=== PATIENT | male | born 1965 | race Hispanic/Latino ===

== ENCOUNTER 2023-04-22 12:09 | Inpatient (IN) | payer BC, OTHER, SELFPAY ==
[~2023-04-22 12:09] MED LIST: Iopamidol 300 61% 100 ML VIAL FS ONE
[2023-04-22] MEDS ORDERED: Ketorolac Tromethamine 30 MG (1 mL) VIAL ONE (13:01)
[2023-04-22 13:08] LABS: Bilirubin Neg (Negative); Blood, Urine Negative (Negative); Clarity Clear (Clear); Glucose, Urine (Dipstick) Normal (Negative); Ketone, Urine Negative (Negative); Leukocyte Negative (Negative); Nitrite Negative (Negative); Protein, Urine (Dipstick) 15 mg/dl (Neg-Trace); Specific Gravity, Urine 1.015 (1.005-1.030); Urobilinogen Normal mg/dL (Less than 2); pH, Urine 6.5 (5.0-9.0)
[2023-04-22 13:30] LABS: #Basophils 0.1 10x3/uL (0.0-0.2); #Eosinphils 0.1 10x3/uL (0.0-0.5); #Neutrophils 18.9 10x3/uL (1.5-8.4); %Basophils 0.3 % (0.0-2.0); %Eosinophils 0.4 % (0.0-6.0); %Lymphocytes 9.4 % (18.0-47.0); %Monocytes 4.3 % (0.0-10.0); %Neutrophils 85.1 % (40.0-75.0); Hematocrit 46.2 % (38.8-50.0); Hemoglobin 15.4 g/dL (13.5-17.5); Mean Corpuscular HGB CONC 33.3 g/dL (32.0-36.0); Mean Corpuscular Hemoglobin 29.8 pg (27.0-33.0); Mean Corpuscular Volume 89.5 fl (81.2-95.1); Mean Platelet Volume 10.5 fl (7.4-10.4); Platelet Count 411 10x3/uL (150-450); RBC Distribution Width 13.8 % (11.5-14.5); Red Blood Cell (RBC) Count 5.16 10x6/uL (4.32-5.72); White Blood Cell (WBC) Count 22.2 10x3/uL (3.5-10.5)
[2023-04-22 13:40] LABS: ALT (SGPT) 20 U/L (8-55); AST (SGOT) 26 U/L (5-34); Alkaline Phosphatase 70 U/L (40-110); Anion Gap 12 mmol/L (10-20); BUN (Urea Nitrogen) 22 mg/dL (8.4-25.7); Bilirubin, Total 0.8 mg/dL (0.2-1.2); Calc. Creatinine Clearance 0 mL/min (70-130); Calcium 9.2 mg/dL (7.8-10.44); Carbon Dioxide 22 mmol/L (22-29); Chloride 108 mmol/L (98-107); Estimated GFR 81; Glucose 116 mg/dL (70-105); Lipase 25 U/L (8-78); Potassium 4.3 mmol/L (3.5-5.1); Sodium 138 mmol/L (136-145)
[2023-04-22 13:46] LABS: Bacteria/HPF None Seen HPF (None Seen); CAUTI Indications for Culture Dysuria,urgency,freq; RBC/HPF 0-3 HPF (0-3); Squamous Epithelial 0-3 HPF (0-3); WBC/HPF None Seen HPF (0-3)
[2023-04-22 13:48] LABS: Urine Culture Reflex No No
[2023-04-22] MEDS ORDERED: Piperacillin/Tazobactam 4.5 GM VIAL ONE (14:08)
[2023-04-22] MEDS ORDERED: Vancomycin 1.5 GRAM/300 ML BAG 1.5 GM in Premix 1 BAG IVPB SCH (14:15)
[2023-04-22] MEDS ORDERED: Bupivacaine PF 0.5% 30 ML VIAL ONE (15:19)
[2023-04-22] MEDS ORDERED: EPINEPHrine 1 MG/ML VIAL ONE (15:19)
[2023-04-22] MEDS ORDERED: Fentanyl 250 MCG/5 ML VIAL ONE (15:45)
[2023-04-22] MEDS ORDERED: PROPOFOL 20 ML ONE (15:45)
[2023-04-22] MEDS ORDERED: Ondansetron PF 4 MG/2 ML Vial ONE (15:46)
[2023-04-22] MEDS ORDERED: Dexamethasone 20 MG/5 ML VIAL ONE (15:46)
[2023-04-22] MEDS ORDERED: Rocuronium Bromide 10 MG/ML (10ML VIAL) ONE (15:46)
[2023-04-22] MEDS ORDERED: Dexmedetomidine 200 MCG/2 ML VIAL ONE (15:53)
[2023-04-22] MEDS ORDERED: KETAMINE 100 MG/ML (5ML VIAL) ONE (15:57)
[2023-04-22] MEDS ORDERED: PHENYLEPHRINE-NS 100 MCG/ML 10 ML SYRINGE ONE (15:57)
[2023-04-22] MEDS ORDERED: Promethazine HCl 25 MG/ML VIAL IM PRN (16:02)
[2023-04-22] MEDS ORDERED: Calcium Carbonate 500 MG ChewTAB PO PRN (16:02)
[2023-04-22] MEDS ORDERED: hydrALAZINE 20 MG/ML VIAL SLOW IVP PRN (16:02)
[2023-04-22] MEDS ORDERED: Morphine 2 MG/ML VIAL SLOW IVP PRN (16:02)
[2023-04-22] MEDS ORDERED: Mag-Al 1200 mg/1200 mg/30 ML UDCUP PO PRN (16:02)
[2023-04-22] MEDS ORDERED: Ondansetron PF 4 MG/2 ML Vial IVP PRN (16:02)
[2023-04-22] MEDS ORDERED: Ipratropium/Albuterol 3 ML NEB NEB PRN (16:02)
[2023-04-22] MEDS ORDERED: PROPOFOL 0 ML ONE (16:18)
[2023-04-22] MEDS ORDERED: Glycopyrrolate 0.2 MG/ML 5 ML SYRINGE ONE (16:54)
[2023-04-22] MEDS: Ketorolac Tromethamine 30 MG (1 mL) VIAL IVP SCH (20:29)
[2023-04-22] MEDS: Famotidine/PF 20 mg/2ml Vial SLOW IVP SCH (20:30)
[2023-04-22] MEDS ORDERED: Piperacillin/Tazobactam 3.375 GM in Sodium Chloride 0.9% 100 ML IVPB SCH (20:30)
[2023-04-22] MEDS: Enoxaparin 40 MG (0.4 mL) SYRINGE SC SCH (20:30)
[2023-04-22] MEDS: Lactated Ringer's 1,000 ML IV SCH (20:43)
[2023-04-23] MEDS: Lactated Ringer's 1,000 ML IV SCH ×3 (00:43→14:00)
[2023-04-23] MEDS: Piperacillin/Tazobactam 3.375 GM in Sodium Chloride 0.9% 100 ML IVPB SCH ×3 (01:54→16:50)
[2023-04-23] MEDS: Ketorolac Tromethamine 30 MG (1 mL) VIAL IVP SCH ×4 (01:55→21:20)
[2023-04-23 03:55] LABS: #Eosinphils 0.1 10x3/uL (0.0-0.5); #Monocytes 0.3 10x3/uL (0.0-1.1); #Neutrophils 14.2 10x3/uL (1.5-8.4); %Basophils 0.2 % (0.0-2.0); %Eosinophils 0.8 % (0.0-6.0); %Lymphocytes 6.8 % (18.0-47.0); %Monocytes 1.6 % (0.0-10.0); Hematocrit 38.6 % (38.8-50.0); Mean Corpuscular HGB CONC 33.7 g/dL (32.0-36.0); Mean Corpuscular Hemoglobin 29.8 pg (27.0-33.0); Mean Corpuscular Volume 88.5 fl (81.2-95.1); Mean Platelet Volume 10.5 fl (7.4-10.4); Platelet Count 313 10x3/uL (150-450); RBC Distribution Width 13.6 % (11.5-14.5); Red Blood Cell (RBC) Count 4.36 10x6/uL (4.32-5.72); White Blood Cell (WBC) Count 15.8 10x3/uL (3.5-10.5)
[2023-04-23] MEDS: Famotidine/PF 20 mg/2ml Vial SLOW IVP SCH ×2 (08:18→21:20)
[2023-04-23] MEDS: Enoxaparin 40 MG (0.4 mL) SYRINGE SC SCH (21:21)
[2023-04-24] MEDS: Piperacillin/Tazobactam 3.375 GM in Sodium Chloride 0.9% 100 ML IVPB SCH ×3 (01:26→17:34)
[2023-04-24] MEDS: Ketorolac Tromethamine 30 MG (1 mL) VIAL IVP SCH ×4 (02:41→20:20)
[2023-04-24 04:46] LABS: #Monocytes 0.8 10x3/uL (0.0-1.1); #Neutrophils 13.8 10x3/uL (1.5-8.4); %Basophils 0.1 % (0.0-2.0); %Monocytes 4.8 % (0.0-10.0); %Neutrophils 84.7 % (40.0-75.0); Hemoglobin 12.4 g/dL (13.5-17.5); Mean Corpuscular HGB CONC 34.4 g/dL (32.0-36.0); Mean Corpuscular Hemoglobin 30.2 pg (27.0-33.0); Mean Corpuscular Volume 87.8 fl (81.2-95.1); Platelet Count 302 10x3/uL (150-450); RBC Distribution Width 13.7 % (11.5-14.5); White Blood Cell (WBC) Count 16.3 10x3/uL (3.5-10.5)
[2023-04-24] MEDS: Famotidine/PF 20 mg/2ml Vial SLOW IVP SCH ×2 (09:30→20:21)
[2023-04-24] MEDS: Enoxaparin 40 MG (0.4 mL) SYRINGE SC SCH (20:21)
[2023-04-25] MEDS: Piperacillin/Tazobactam 3.375 GM in Sodium Chloride 0.9% 100 ML IVPB SCH ×3 (01:30→17:07)
[2023-04-25] MEDS: Ketorolac Tromethamine 30 MG (1 mL) VIAL IVP SCH ×4 (01:30→20:14)
[2023-04-25] MEDS: Acetaminophen 325 MG TAB PO PRN (02:07)
[2023-04-25] MEDS: Famotidine/PF 20 mg/2ml Vial SLOW IVP SCH ×2 (08:32→20:15)
[2023-04-25 08:36] LABS: Hematocrit 47.3 % (38.8-50.0); Hemoglobin 15.9 g/dL (13.5-17.5); Mean Corpuscular HGB CONC 33.6 g/dL (32.0-36.0); Mean Corpuscular Hemoglobin 29.3 pg (27.0-33.0); Mean Corpuscular Volume 87.1 fl (81.2-95.1); Mean Platelet Volume 10.3 fl (7.4-10.4); Platelet Count 356 10x3/uL (150-450); RBC Distribution Width 14.3 % (11.5-14.5); Red Blood Cell (RBC) Count 5.43 10x6/uL (4.32-5.72); White Blood Cell (WBC) Count 8.5 10x3/uL (3.5-10.5)
[2023-04-25] MEDS ORDERED: Sodium Chloride 0.9% 1,000 ML IV SCH ×2 (09:00→11:30)
[2023-04-25 09:26] LABS: MDiff Complete? YES
[2023-04-25 15:23] LABS: Band 27 % (5-11); Lymphocytes 33 % (21-51); Monocytes 10 % (0-10); Neutrophil 29 % (42-75); Reactive Lymphocytes 1 % (0-10)
[2023-04-25 15:25] LABS: Dohle Bodies SLIGHT; Platelet Adequacy Comment PLT clumps seen-ADEQ; RBC Morph Comment Within Normal Limits; Smudge Cells SLIGHT; Toxic Granulation SLIGHT; Vacuoles SLIGHT
[2023-04-25] MEDS: Enoxaparin 40 MG (0.4 mL) SYRINGE SC SCH (20:15)
[2023-04-26] MEDS: Ketorolac Tromethamine 30 MG (1 mL) VIAL IVP SCH ×4 (01:33→21:14)
[2023-04-26] MEDS: Piperacillin/Tazobactam 3.375 GM in Sodium Chloride 0.9% 100 ML IVPB SCH ×3 (01:34→17:17)
[2023-04-26 06:04] LABS: Hematocrit 42.8 % (38.8-50.0); Hemoglobin 14.4 g/dL (13.5-17.5); MDiff Complete? YES; Mean Corpuscular HGB CONC 33.6 g/dL (32.0-36.0); Mean Corpuscular Hemoglobin 29.7 pg (27.0-33.0); Mean Corpuscular Volume 88.2 fl (81.2-95.1); Mean Platelet Volume 10.7 fl (7.4-10.4); Platelet Count 319 10x3/uL (150-450); RBC Distribution Width 14.4 % (11.5-14.5); Red Blood Cell (RBC) Count 4.85 10x6/uL (4.32-5.72); White Blood Cell (WBC) Count 14.7 10x3/uL (3.5-10.5)
[2023-04-26 06:59] LABS: Band 16 % (5-11); Eosinophils 1 % (0-10); Lymphocytes 9 % (21-51); Monocytes 1 % (0-10); Neutrophil 73 % (42-75)
[2023-04-26 07:09] LABS: Platelet Adequacy Comment Appears Adequate; RBC Morph Comment Within Normal Limits; Toxic Granulation SLIGHT
[2023-04-26] MEDS: Famotidine/PF 20 mg/2ml Vial SLOW IVP SCH ×2 (08:57→21:14)
[2023-04-26] MEDS ORDERED: Iopamidol 300 61% 100 ML VIAL FS ONE (09:54)
[2023-04-26 15:53] LABS: Bilirubin Neg (Negative); Blood, Urine 10 (Negative); Glucose, Urine (Dipstick) Normal (Negative); Ketone, Urine Negative (Negative); Leukocyte Negative (Negative); Nitrite Negative (Negative); Protein, Urine (Dipstick) 30 mg/dl (Neg-Trace); Specific Gravity, Urine 1.025 (1.005-1.030); Urobilinogen Normal mg/dL (Less than 2)
[2023-04-26 16:12] LABS: Clarity Hazy (Clear)
[2023-04-26 16:16] LABS: Bacteria/HPF 1+ HPF (None Seen); CAUTI Indications for Culture Dysuria,urgency,freq; RBC/HPF 0-3 HPF (0-3); Urine Culture Reflex No No; WBC/HPF 0-3 HPF (0-3)
[2023-04-26] MEDS: Enoxaparin 40 MG (0.4 mL) SYRINGE SC SCH (21:15)
[2023-04-27] MEDS: Piperacillin/Tazobactam 3.375 GM in Sodium Chloride 0.9% 100 ML IVPB SCH ×3 (01:57→19:01)
[2023-04-27] MEDS: Ketorolac Tromethamine 30 MG (1 mL) VIAL IVP SCH (02:05)
[2023-04-27 04:24] LABS: Hematocrit 39.3 % (38.8-50.0); Hemoglobin 13.1 g/dL (13.5-17.5); Mean Corpuscular HGB CONC 33.3 g/dL (32.0-36.0); Mean Corpuscular Hemoglobin 29.3 pg (27.0-33.0); Mean Corpuscular Volume 87.9 fl (81.2-95.1); Mean Platelet Volume 10.9 fl (7.4-10.4); Platelet Count 289 10x3/uL (150-450); RBC Distribution Width 14.4 % (11.5-14.5); Red Blood Cell (RBC) Count 4.47 10x6/uL (4.32-5.72)
[2023-04-27 04:27] LABS: Band 17 % (5-11); Eosinophils 6 % (0-10); Lymphocytes 8 % (21-51); Metamyelocyte 1 % (0-0); Monocytes 5 % (0-10); RBC Morph Comment Within Normal Limits
[2023-04-27 04:28] LABS: Platelet Adequacy Comment Appears Adequate
[2023-04-27 04:30] LABS: MDiff Complete? YES
[2023-04-27] MEDS: Famotidine/PF 20 mg/2ml Vial SLOW IVP SCH ×2 (10:49→22:51)
[2023-04-27] MEDS: Morphine 4 MG/ML VIAL SLOW IVP PRN (22:51)
[2023-04-27] MEDS: Enoxaparin 40 MG (0.4 mL) SYRINGE SC SCH (22:51)
[2023-04-27] MEDS: Acetaminophen 325 MG TAB PO PRN (23:04)
[2023-04-28] MEDS: Piperacillin/Tazobactam 3.375 GM in Sodium Chloride 0.9% 100 ML IVPB SCH ×3 (02:34→17:25)
[2023-04-28 03:56] LABS: Hematocrit 37.6 % (38.8-50.0); Hemoglobin 12.4 g/dL (13.5-17.5); Mean Corpuscular Volume 87.9 fl (81.2-95.1); Mean Platelet Volume 10.2 fl (7.4-10.4); Platelet Count 323 10x3/uL (150-450); RBC Distribution Width 14.5 % (11.5-14.5); Red Blood Cell (RBC) Count 4.28 10x6/uL (4.32-5.72); White Blood Cell (WBC) Count 15.3 10x3/uL (3.5-10.5)
[2023-04-28 04:27] LABS: Band 7 % (5-11); Eosinophils 2 % (0-10); Lymphocytes 11 % (21-51); Monocytes 9 % (0-10)
[2023-04-28 04:28] LABS: MDiff Complete? YES; Platelet Adequacy Comment Appears Adequate; RBC Morph Comment Within Normal Limits
[2023-04-28] MEDS: Famotidine/PF 20 mg/2ml Vial SLOW IVP SCH ×2 (09:24→22:15)
[2023-04-28] MEDS: Morphine 4 MG/ML VIAL SLOW IVP PRN (11:38)
[2023-04-28 16:20] LABS: #Basophils 0.1 10x3/uL (0.0-0.2); #Eosinphils 0.3 10x3/uL (0.0-0.5); #Monocytes 1.6 10x3/uL (0.0-1.1); #Neutrophils 13.2 10x3/uL (1.5-8.4); %Basophils 0.6 % (0.0-2.0); %Eosinophils 1.7 % (0.0-6.0); %Lymphocytes 8.7 % (18.0-47.0); %Monocytes 9.2 % (0.0-10.0); Hematocrit 38.8 % (38.8-50.0); Hemoglobin 13.2 g/dL (13.5-17.5); Mean Corpuscular Hemoglobin 29.6 pg (27.0-33.0); Mean Platelet Volume 10.1 fl (7.4-10.4); Platelet Count 357 10x3/uL (150-450); RBC Distribution Width 14.6 % (11.5-14.5); Red Blood Cell (RBC) Count 4.46 10x6/uL (4.32-5.72); White Blood Cell (WBC) Count 16.9 10x3/uL (3.5-10.5)
[2023-04-28 16:43] LABS: ALT (SGPT) 16 U/L (8-55); AST (SGOT) 19 U/L (5-34); Albumin 2.7 g/dL (3.5-5.0); Alkaline Phosphatase 106 U/L (40-110); Anion Gap 15 mmol/L (10-20); BUN (Urea Nitrogen) 22 mg/dL (8.4-25.7); Bilirubin, Total 0.9 mg/dL (0.2-1.2); Calc. Creatinine Clearance 123 mL/min (70-130); Calcium 8.3 mg/dL (7.8-10.44); Carbon Dioxide 23 mmol/L (22-29); Chloride 108 mmol/L (98-107); Estimated GFR 103; Globulin 2.8 g/dL (2.4-3.5); Glucose 86 mg/dL (70-105); Protein, Total 5.5 g/dL (6.0-8.3); Sodium 142 mmol/L (136-145)
[2023-04-28] MEDS: Enoxaparin 40 MG (0.4 mL) SYRINGE SC SCH (22:15)
[2023-04-29] MEDS: Piperacillin/Tazobactam 3.375 GM in Sodium Chloride 0.9% 100 ML IVPB SCH ×3 (04:19→17:28)
[2023-04-29] MEDS: Famotidine/PF 20 mg/2ml Vial SLOW IVP SCH (08:15)
[2023-04-29] MEDS ORDERED: Acetaminophen 500 MG TAB PO PRN (09:39)
[2023-04-29] MEDS ORDERED: Ketorolac Tromethamine 30 MG (1 mL) VIAL IVP PRN (09:39)
[2023-04-29] MEDS ORDERED: Ketorolac Tromethamine 30 MG (1 mL) VIAL IVP SCH (09:45)
[2023-04-29] MEDS: Enoxaparin 40 MG (0.4 mL) SYRINGE SC SCH (23:10)
[2023-04-30] MEDS: Piperacillin/Tazobactam 3.375 GM in Sodium Chloride 0.9% 100 ML IVPB SCH ×4 (02:25→23:56)
[2023-04-30 03:38] LABS: #Basophils 0.1 10x3/uL (0.0-0.2); #Eosinphils 0.8 10x3/uL (0.0-0.5); #Monocytes 1.8 10x3/uL (0.0-1.1); #Neutrophils 11.2 10x3/uL (1.5-8.4); %Basophils 0.6 % (0.0-2.0); %Eosinophils 4.8 % (0.0-6.0); %Lymphocytes 10.1 % (18.0-47.0); %Neutrophils 70.5 % (40.0-75.0); Hemoglobin 12.9 g/dL (13.5-17.5); Mean Corpuscular HGB CONC 33.9 g/dL (32.0-36.0); Mean Corpuscular Hemoglobin 29.3 pg (27.0-33.0); Mean Corpuscular Volume 86.4 fl (81.2-95.1); Mean Platelet Volume 10.2 fl (7.4-10.4); Platelet Count 396 10x3/uL (150-450); RBC Distribution Width 14.4 % (11.5-14.5); White Blood Cell (WBC) Count 15.9 10x3/uL (3.5-10.5)
[2023-04-30 03:46] LABS: Anion Gap 14 mmol/L (10-20); BUN (Urea Nitrogen) 20 mg/dL (8.4-25.7); Calc. Creatinine Clearance 131 mL/min (70-130); Calcium 8.3 mg/dL (7.8-10.44); Carbon Dioxide 25 mmol/L (22-29); Chloride 107 mmol/L (98-107); Estimated GFR 105; Glucose 144 mg/dL (70-105); Potassium 4.2 mmol/L (3.5-5.1); Sodium 142 mmol/L (136-145)
[2023-04-30] MEDS ORDERED: Rocuronium Bromide 10 MG/ML (10ML VIAL) ONE (08:16)
[2023-04-30] MEDS ORDERED: Succinylcholine 200 MG/10 ml SYRINGE FS ONE (08:17)
[2023-04-30] MEDS ORDERED: PROPOFOL 20 ML ONE (08:17)
[2023-04-30] MEDS: Pantoprazole 40 MG VIAL IVP SCH (09:00)
[2023-04-30] MEDS ORDERED: PHENYLEPHRINE-NS 100 MCG/ML 10 ML SYRINGE ONE (09:24)
[2023-04-30] MEDS ORDERED: SUGAMMADEX SODIUM 200 MG/2 ML VIAL ONE (10:18)
[2023-04-30] MEDS ORDERED: Albumin 5% 250 ML ONE (10:42)
[2023-04-30] MEDS ORDERED: Vasopressin 20 UNITS/ML VIAL ONE (11:01)
[2023-04-30 11:25] LABS: Hematocrit 31.8 % (38.8-50.0); Hemoglobin 10.7 g/dL (13.5-17.5)
[2023-04-30] MEDS ORDERED: fentaNYL 50 mcg/mL 1 mL Vial ONE (11:51)
[2023-04-30] MEDS ORDERED: Morphine 10 MG/ML VIAL ONE (11:56)
[2023-04-30] MEDS ORDERED: Ketorolac Tromethamine 30 MG (1 mL) VIAL IVP PRN (12:41)
[2023-04-30] MEDS ORDERED: 1/2 NS w/Potassium 20 mEq 1,000 ML IV SCH (12:45)
[2023-04-30] MEDS ORDERED: Promethazine HCl 25 MG/ML VIAL IM PRN (13:00)
[2023-04-30] MEDS ORDERED: diphenhydrAMINE 50 MG/ML VIAL IM/IV PRN (13:00)
[2023-04-30] MEDS ORDERED: Zolpidem Tartrate 5 MG TAB PO PRN (13:00)
[2023-04-30] MEDS ORDERED: Naloxone HCl 0.4 mg/ml Vial IV PRN (13:00)
[2023-04-30] MEDS ORDERED: diphenhydrAMINE 25 MG CAP PO PRN (13:00)
[2023-04-30] MEDS ORDERED: Ondansetron PF 4 MG/2 ML Vial IVP PRN (13:00)
[2023-04-30] MEDS ORDERED: Lactated Ringer's 1,000 ML IV SCH ×2 (16:15→17:30)
[2023-04-30] MEDS ORDERED: Albumin 25% 25 GM (100 mL) BOT IVPB SCH (16:15)
[2023-04-30 16:32] LABS: Hemoglobin 12.6 g/dL (13.5-17.5); Mean Corpuscular HGB CONC 34.1 g/dL (32.0-36.0); Mean Corpuscular Hemoglobin 29.7 pg (27.0-33.0); Mean Corpuscular Volume 87.3 fl (81.2-95.1); Mean Platelet Volume 10.2 fl (7.4-10.4); Platelet Count 427 10x3/uL (150-450); RBC Distribution Width 14.8 % (11.5-14.5); Red Blood Cell (RBC) Count 4.24 10x6/uL (4.32-5.72); White Blood Cell (WBC) Count 21.8 10x3/uL (3.5-10.5)
[2023-04-30 16:55] LABS: MDiff Complete? YES
[2023-04-30 16:58] LABS: Band 6 % (5-11); Lymphocytes 2 % (21-51); Metamyelocyte 1 % (0-0); Monocytes 1 % (0-10); Myelocyte 1 % (0-0); Neutrophil 88 % (42-75); Other Cell Types 1
[2023-04-30 16:59] LABS: Platelet Adequacy Comment Appears Adequate; Platelet Clumps SLIGHT; Polychromasia SLIGHT = 2-3 cells (100X) (0-2/hpf); Toxic Granulation SLIGHT; Vacuoles SLIGHT
[2023-04-30] MEDS: Ketorolac Tromethamine 30 MG (1 mL) VIAL IVP SCH (18:52)
[2023-04-30 21:03] LABS: Hemoglobin 12.9 g/dL (13.5-17.5); Mean Corpuscular HGB CONC 33.9 g/dL (32.0-36.0); Mean Corpuscular Hemoglobin 29.5 pg (27.0-33.0); Mean Platelet Volume 10.4 fl (7.4-10.4); Platelet Count 373 10x3/uL (150-450); RBC Distribution Width 14.5 % (11.5-14.5); Red Blood Cell (RBC) Count 4.37 10x6/uL (4.32-5.72); White Blood Cell (WBC) Count 21.6 10x3/uL (3.5-10.5)
[2023-04-30 21:34] LABS: MDiff Complete? YES
[2023-04-30 21:36] LABS: Platelet Adequacy Comment Appears Adequate; RBC Morph Comment Within Normal Limits
[2023-04-30 21:38] LABS: Band 8 % (5-11); Eosinophils 1 % (0-10); Lymphocytes 10 % (21-51); Monocytes 6 % (0-10); Neutrophil 75 % (42-75)
[2023-05-01] MEDS: Albumin 25% 25 GM (100 mL) BOT IVPB SCH ×5 (00:09→17:25)
[2023-05-01] MEDS: Lactated Ringer's 1,000 ML IV SCH ×6 (00:10→23:05)
[2023-05-01] MEDS: Ketorolac Tromethamine 30 MG (1 mL) VIAL IVP SCH ×5 (00:11→23:49)
[2023-05-01] MEDS: Piperacillin/Tazobactam 3.375 GM in Sodium Chloride 0.9% 100 ML IVPB SCH ×3 (02:44→17:26)
[2023-05-01 04:56] LABS: Hematocrit 31.9 % (38.8-50.0); Hemoglobin 10.7 g/dL (13.5-17.5); Mean Corpuscular HGB CONC 33.5 g/dL (32.0-36.0); Mean Corpuscular Hemoglobin 29.2 pg (27.0-33.0); Mean Corpuscular Volume 86.9 fl (81.2-95.1); Mean Platelet Volume 10.2 fl (7.4-10.4); Platelet Count 340 10x3/uL (150-450); RBC Distribution Width 14.8 % (11.5-14.5); Red Blood Cell (RBC) Count 3.67 10x6/uL (4.32-5.72); White Blood Cell (WBC) Count 21.5 10x3/uL (3.5-10.5)
[2023-05-01 05:05] LABS: MDiff Complete? YES
[2023-05-01 05:22] LABS: Platelet Adequacy Comment Appears Adequate
[2023-05-01 05:23] LABS: RBC Morph Comment Within Normal Limits
[2023-05-01 05:25] LABS: Band 9 % (5-11); Eosinophils 1 % (0-10); Lymphocytes 9 % (21-51); Metamyelocyte 1 % (0-0); Monocytes 6 % (0-10); Myelocyte 1 % (0-0); Neutrophil 73 % (42-75)
[2023-05-01 05:28] LABS: ALT (SGPT) 12 U/L (8-55); AST (SGOT) 22 U/L (5-34); Albumin 2.6 g/dL (3.5-5.0); Alkaline Phosphatase 51 U/L (40-110); Anion Gap 13 mmol/L (10-20); BUN (Urea Nitrogen) 25 mg/dL (8.4-25.7); Calc. Creatinine Clearance 88 mL/min (70-130); Carbon Dioxide 22 mmol/L (22-29); Chloride 109 mmol/L (98-107); Estimated GFR 76; Globulin 1.6 g/dL (2.4-3.5); Glucose 155 mg/dL (70-105); Potassium 4.2 mmol/L (3.5-5.1); Protein, Total 4.2 g/dL (6.0-8.3); Sodium 140 mmol/L (136-145)
[2023-05-01] MEDS ORDERED: Dextrose 5% in Water 1,000 ML IV PRN (06:28)
[2023-05-01] MEDS ORDERED: Glucagon 1 MG/ML KIT IM PRN (06:28)
[2023-05-01] MEDS ORDERED: Dextrose 50% Abboject 50 ML SYRINGE SLOW IVP PRN (06:28)
[2023-05-01] MEDS: Pantoprazole 40 MG VIAL IVP SCH (08:39)
[2023-05-01] MEDS: FENTANYL 500 MCG/10 ML VIAL 1,000 MCG in Sodium Chloride 0.9% 30 ML IV PRN (10:53)
[2023-05-01] MEDS ORDERED: Multivitamins, Adult 10 ML, TRACE ELEMENT CONCENTRATE 1 ML in D15W-AA 5% with Lytes 2,0... IV SCH (14:00)
[2023-05-01] MEDS ORDERED: Multivitamins, Adult 10 ML, TRACE ELEMENT CONCENTRATE 1 ML, Fat Emulsion 250 ML in D15W... IV SCH (14:00)
[2023-05-01] MEDS ORDERED: Fat Emulsion 250 ML IVPB SCH (14:00)
[2023-05-01 15:30] LABS: Hematocrit 25.7 % (38.8-50.0); Hemoglobin 8.7 g/dL (13.5-17.5); Mean Corpuscular HGB CONC 33.9 g/dL (32.0-36.0); Mean Corpuscular Hemoglobin 29.8 pg (27.0-33.0); Mean Platelet Volume 10.4 fl (7.4-10.4); Platelet Count 328 10x3/uL (150-450); RBC Distribution Width 14.8 % (11.5-14.5); Red Blood Cell (RBC) Count 2.92 10x6/uL (4.32-5.72); White Blood Cell (WBC) Count 24.1 10x3/uL (3.5-10.5)
[2023-05-01 15:31] LABS: MDiff Complete? YES
[2023-05-01] MEDS: HumaLOG 300 UNITS/3 ML VIAL SC PRN ×2 (16:53→23:56)
[2023-05-01 20:02] LABS: Band 33 % (5-11); Eosinophils 1 % (0-10); Lymphocytes 7 % (21-51); Metamyelocyte 1 % (0-0); Monocytes 3 % (0-10); Neutrophil 55 % (42-75)
[2023-05-01 20:21] LABS: Hypochromia SLIGHT = 6-15 cells (100X) (0-5/hpf); Platelet Adequacy Comment Appears Adequate
[2023-05-02] MEDS: Piperacillin/Tazobactam 3.375 GM in Sodium Chloride 0.9% 100 ML IVPB SCH ×3 (01:19→18:00)
[2023-05-02] MEDS: Lactated Ringer's 1,000 ML IV SCH ×3 (01:20→08:37)
[2023-05-02 04:40] LABS: Hematocrit 24.9 % (38.8-50.0); Hemoglobin 8.4 g/dL (13.5-17.5); Mean Corpuscular HGB CONC 33.7 g/dL (32.0-36.0); Mean Corpuscular Hemoglobin 29.5 pg (27.0-33.0); Mean Corpuscular Volume 87.4 fl (81.2-95.1); Mean Platelet Volume 10.4 fl (7.4-10.4); Platelet Count 370 10x3/uL (150-450); RBC Distribution Width 14.7 % (11.5-14.5); Red Blood Cell (RBC) Count 2.85 10x6/uL (4.32-5.72); White Blood Cell (WBC) Count 29.2 10x3/uL (3.5-10.5)
[2023-05-02 04:51] LABS: MDiff Complete? YES
[2023-05-02 04:55] LABS: ALT (SGPT) 11 U/L (8-55); AST (SGOT) 17 U/L (5-34); Albumin 2.8 g/dL (3.5-5.0); Alkaline Phosphatase 55 U/L (40-110); Anion Gap 12 mmol/L (10-20); BUN (Urea Nitrogen) 20 mg/dL (8.4-25.7); Bilirubin, Total 0.5 mg/dL (0.2-1.2); Calc. Creatinine Clearance 127 mL/min (70-130); Calcium 7.4 mg/dL (7.8-10.44); Carbon Dioxide 23 mmol/L (22-29); Chloride 110 mmol/L (98-107); Estimated GFR 104; Globulin 1.6 g/dL (2.4-3.5); Glucose 198 mg/dL (70-105); Phosphorus 2.1 mg/dL (2.3-4.7); Protein, Total 4.4 g/dL (6.0-8.3); Sodium 142 mmol/L (136-145)
[2023-05-02 05:03] LABS: Platelet Adequacy Comment Appears Adequate; RBC Morph Comment Within Normal Limits
[2023-05-02 05:06] LABS: Band 17 % (5-11); Eosinophils 4 % (0-10); Lymphocytes 9 % (21-51); Metamyelocyte 2 % (0-0); Monocytes 4 % (0-10); Neutrophil 64 % (42-75)
[2023-05-02] MEDS: Ketorolac Tromethamine 30 MG (1 mL) VIAL IVP SCH ×2 (06:04→11:58)
[2023-05-02] MEDS: HumaLOG 300 UNITS/3 ML VIAL SC PRN ×3 (06:15→16:57)
[2023-05-02] MEDS: Pantoprazole 40 MG VIAL IVP SCH (08:07)
[2023-05-02] MEDS ORDERED: Multivitamins, Adult 10 ML, TRACE ELEMENT CONCENTRATE 1 ML in D15W-AA 5% with Lytes 2,0... IV SCH (14:00)
[2023-05-02] MEDS: MULTIVITAMINS IV SCH (14:21)
[2023-05-02] MEDS: [UNRECOGNIZED DRUG - OTHER] IV SCH (14:21)
[2023-05-02] MEDS: TRACE ELEMENT IV SCH (14:21)
[2023-05-02] MEDS: FENTANYL 500 MCG/10 ML VIAL 1,000 MCG in Sodium Chloride 0.9% 30 ML IV PRN (17:22)
[2023-05-03] MEDS ORDERED: Piperacillin/Tazobactam 3.375 GM VIAL ONE (02:49)
[2023-05-03] MEDS: Piperacillin/Tazobactam 3.375 GM in Sodium Chloride 0.9% 100 ML IVPB SCH ×3 (02:58→18:20)
[2023-05-03 03:52] LABS: ALT (SGPT) 13 U/L (8-55); AST (SGOT) 21 U/L (5-34); Albumin 2.6 g/dL (3.5-5.0); Alkaline Phosphatase 73 U/L (40-110); Anion Gap 11 mmol/L (10-20); BUN (Urea Nitrogen) 22 mg/dL (8.4-25.7); Bilirubin, Total 0.4 mg/dL (0.2-1.2); Calc. Creatinine Clearance 138 mL/min (70-130); Calcium 7.6 mg/dL (7.8-10.44); Carbon Dioxide 23 mmol/L (22-29); Chloride 110 mmol/L (98-107); Estimated GFR 104; Globulin 2.1 g/dL (2.4-3.5); Glucose 218 mg/dL (70-105); Potassium 3.2 mmol/L (3.5-5.1); Protein, Total 4.7 g/dL (6.0-8.3); Sodium 141 mmol/L (136-145)
[2023-05-03 03:55] LABS: #Basophils 0.1 10x3/uL (0.0-0.2); #Eosinphils 1.2 10x3/uL (0.0-0.5); #Monocytes 0.8 10x3/uL (0.0-1.1); #Neutrophils 21.8 10x3/uL (1.5-8.4); %Basophils 0.4 % (0.0-2.0); %Eosinophils 4.6 % (0.0-6.0); %Neutrophils 81.2 % (40.0-75.0); Hematocrit 26.2 % (38.8-50.0); Hemoglobin 8.7 g/dL (13.5-17.5); Mean Corpuscular HGB CONC 33.2 g/dL (32.0-36.0); Mean Corpuscular Hemoglobin 29.3 pg (27.0-33.0); Mean Corpuscular Volume 88.2 fl (81.2-95.1); Mean Platelet Volume 10.5 fl (7.4-10.4); Platelet Count 519 10x3/uL (150-450); RBC Distribution Width 14.9 % (11.5-14.5); Red Blood Cell (RBC) Count 2.97 10x6/uL (4.32-5.72); White Blood Cell (WBC) Count 26.8 10x3/uL (3.5-10.5)
[2023-05-03] MEDS: Lactated Ringer's 1,000 ML IV SCH (07:18)
[2023-05-03] MEDS: Pantoprazole 40 MG VIAL IVP SCH (07:47)
[2023-05-03] MEDS: HumaLOG 300 UNITS/3 ML VIAL SC PRN (10:23)
[2023-05-03] MEDS: [UNRECOGNIZED DRUG - OTHER] IV SCH (14:04)
[2023-05-03] MEDS: TRACE ELEMENT IV SCH (14:04)
[2023-05-03] MEDS: MULTIVITAMINS IV SCH (14:04)
[2023-05-03] MEDS: FENTANYL 500 MCG/10 ML VIAL 1,000 MCG in Sodium Chloride 0.9% 30 ML IV PRN (14:29)
[2023-05-04] MEDS: Lactated Ringer's 1,000 ML IV SCH ×2 (01:47→06:19)
[2023-05-04] MEDS: Piperacillin/Tazobactam 3.375 GM in Sodium Chloride 0.9% 100 ML IVPB SCH ×3 (02:00→17:41)
[2023-05-04] MEDS: HumaLOG 300 UNITS/3 ML VIAL SC PRN ×2 (03:03→06:19)
[2023-05-04 03:28] LABS: #Basophils 0.1 10x3/uL (0.0-0.2); #Eosinphils 0.8 10x3/uL (0.0-0.5); #Monocytes 1.4 10x3/uL (0.0-1.1); #Neutrophils 14.7 10x3/uL (1.5-8.4); %Basophils 0.6 % (0.0-2.0); %Lymphocytes 10.5 % (18.0-47.0); %Monocytes 6.9 % (0.0-10.0); Hematocrit 25.9 % (38.8-50.0); Hemoglobin 8.7 g/dL (13.5-17.5); Mean Corpuscular HGB CONC 33.6 g/dL (32.0-36.0); Mean Corpuscular Hemoglobin 29.7 pg (27.0-33.0); Mean Corpuscular Volume 88.4 fl (81.2-95.1); Platelet Count 655 10x3/uL (150-450); RBC Distribution Width 14.9 % (11.5-14.5); Red Blood Cell (RBC) Count 2.93 10x6/uL (4.32-5.72); White Blood Cell (WBC) Count 19.7 10x3/uL (3.5-10.5)
[2023-05-04 03:41] LABS: ALT (SGPT) 18 U/L (8-55); AST (SGOT) 26 U/L (5-34); Albumin 2.6 g/dL (3.5-5.0); Alkaline Phosphatase 84 U/L (40-110); Anion Gap 12 mmol/L (10-20); BUN (Urea Nitrogen) 17 mg/dL (8.4-25.7); Bilirubin, Total 0.6 mg/dL (0.2-1.2); Calc. Creatinine Clearance 135 mL/min (70-130); Calcium 7.9 mg/dL (7.8-10.44); Carbon Dioxide 21 mmol/L (22-29); Chloride 108 mmol/L (98-107); Estimated GFR 103; Globulin 2.4 g/dL (2.4-3.5); Glucose 248 mg/dL (70-105); Potassium 3.9 mmol/L (3.5-5.1); Sodium 137 mmol/L (136-145)
[2023-05-04] MEDS: Pantoprazole 40 MG VIAL IVP SCH (07:53)
[2023-05-04] MEDS: FENTANYL 500 MCG/10 ML VIAL 1,000 MCG in Sodium Chloride 0.9% 30 ML IV PRN (12:44)
[2023-05-04] MEDS: [UNRECOGNIZED DRUG - OTHER] IV SCH (14:12)
[2023-05-04] MEDS: MULTIVITAMINS IV SCH (14:12)
[2023-05-04] MEDS: Fat Emulsion 250 ML IVPB SCH (14:12)
[2023-05-04] MEDS: TRACE ELEMENT IV SCH (14:12)
[2023-05-05] MEDS: HumaLOG 300 UNITS/3 ML VIAL SC PRN ×2 (00:25→06:40)
[2023-05-05] MEDS: Piperacillin/Tazobactam 3.375 GM in Sodium Chloride 0.9% 100 ML IVPB SCH ×3 (02:25→18:53)
[2023-05-05 08:33] LABS: #Basophils 0.1 10x3/uL (0.0-0.2); #Monocytes 1.6 10x3/uL (0.0-1.1); #Neutrophils 14.4 10x3/uL (1.5-8.4); %Basophils 0.7 % (0.0-2.0); %Eosinophils 5.3 % (0.0-6.0); %Lymphocytes 9.4 % (18.0-47.0); %Monocytes 8.1 % (0.0-10.0); %Neutrophils 74.1 % (40.0-75.0); Anion Gap 12 mmol/L (10-20); BUN (Urea Nitrogen) 13 mg/dL (8.4-25.7); Calc. Creatinine Clearance 146 mL/min (70-130); Carbon Dioxide 21 mmol/L (22-29); Chloride 105 mmol/L (98-107); Estimated GFR 106; Glucose 191 mg/dL (70-105); Hematocrit 26.7 % (38.8-50.0); Hemoglobin 8.9 g/dL (13.5-17.5); Mean Corpuscular HGB CONC 33.3 g/dL (32.0-36.0); Mean Corpuscular Hemoglobin 29.5 pg (27.0-33.0); Mean Corpuscular Volume 88.4 fl (81.2-95.1); Mean Platelet Volume 10.2 fl (7.4-10.4); Platelet Count 686 10x3/uL (150-450); Potassium 4.3 mmol/L (3.5-5.1); RBC Distribution Width 14.5 % (11.5-14.5); Red Blood Cell (RBC) Count 3.02 10x6/uL (4.32-5.72); Sodium 134 mmol/L (136-145); White Blood Cell (WBC) Count 19.4 10x3/uL (3.5-10.5)
[2023-05-05] MEDS: Pantoprazole 40 MG VIAL IVP SCH (08:37)
[2023-05-05] MEDS: FENTANYL 500 MCG/10 ML VIAL 1,000 MCG in Sodium Chloride 0.9% 30 ML IV PRN (09:10)
[2023-05-05] MEDS: TRACE ELEMENT IV SCH (14:21)
[2023-05-05] MEDS: [UNRECOGNIZED DRUG - OTHER] IV SCH (14:21)
[2023-05-05] MEDS: MULTIVITAMINS IV SCH (14:21)
[2023-05-06] MEDS: HumaLOG 300 UNITS/3 ML VIAL SC PRN ×4 (00:02→18:26)
[2023-05-06] MEDS: Piperacillin/Tazobactam 3.375 GM in Sodium Chloride 0.9% 100 ML IVPB SCH ×3 (02:40→17:05)
[2023-05-06] MEDS: Lactated Ringer's 1,000 ML IV SCH (02:41)
[2023-05-06] MEDS: FENTANYL 500 MCG/10 ML VIAL 1,000 MCG in Sodium Chloride 0.9% 30 ML IV PRN ×4 (06:18→23:39)
[2023-05-06 08:03] LABS: Anion Gap 14 mmol/L (10-20); BUN (Urea Nitrogen) 14 mg/dL (8.4-25.7); Calc. Creatinine Clearance 135 mL/min (70-130); Calcium 8.3 mg/dL (7.8-10.44); Carbon Dioxide 21 mmol/L (22-29); Chloride 104 mmol/L (98-107); Estimated GFR 103; Glucose 201 mg/dL (70-105); Sodium 134 mmol/L (136-145)
[2023-05-06] MEDS: Pantoprazole 40 MG VIAL IVP SCH (08:28)
[2023-05-06] MEDS: Fat Emulsion 250 ML IVPB SCH (13:54)
[2023-05-06] MEDS: MULTIVITAMINS IV SCH (13:55)
[2023-05-06] MEDS: TRACE ELEMENT IV SCH (13:55)
[2023-05-06] MEDS: [UNRECOGNIZED DRUG - OTHER] IV SCH (13:55)
[2023-05-06 14:39] LABS: #Basophils 0.2 10x3/uL (0.0-0.2); #Eosinphils 1.1 10x3/uL (0.0-0.5); #Monocytes 1.7 10x3/uL (0.0-1.1); #Neutrophils 13.6 10x3/uL (1.5-8.4); %Basophils 1.2 % (0.0-2.0); %Eosinophils 5.8 % (0.0-6.0); %Lymphocytes 10.6 % (18.0-47.0); %Monocytes 8.9 % (0.0-10.0); %Neutrophils 70.2 % (40.0-75.0); Hematocrit 29.1 % (38.8-50.0); Hemoglobin 9.6 g/dL (13.5-17.5); Mean Corpuscular Hemoglobin 29.2 pg (27.0-33.0); Mean Corpuscular Volume 88.4 fl (81.2-95.1); Mean Platelet Volume 10.1 fl (7.4-10.4); Platelet Count 785 10x3/uL (150-450); Red Blood Cell (RBC) Count 3.29 10x6/uL (4.32-5.72); White Blood Cell (WBC) Count 19.4 10x3/uL (3.5-10.5)
[2023-05-06] MEDS: Acetaminophen 325 MG TAB PO PRN (21:04)
[2023-05-07] MEDS: Piperacillin/Tazobactam 3.375 GM in Sodium Chloride 0.9% 100 ML IVPB SCH ×3 (01:47→18:19)
[2023-05-07] MEDS: Lactated Ringer's 1,000 ML IV SCH (01:48)
[2023-05-07 04:56] LABS: ALT (SGPT) 22 U/L (8-55); AST (SGOT) 24 U/L (5-34); Albumin 2.7 g/dL (3.5-5.0); Alkaline Phosphatase 85 U/L (40-110); Anion Gap 13 mmol/L (10-20); BUN (Urea Nitrogen) 14 mg/dL (8.4-25.7); Bilirubin, Total 0.4 mg/dL (0.2-1.2); Calc. Creatinine Clearance 126 mL/min (70-130); Calcium 8.4 mg/dL (7.8-10.44); Carbon Dioxide 23 mmol/L (22-29); Chloride 103 mmol/L (98-107); Estimated GFR 101; Globulin 3.3 g/dL (2.4-3.5); Glucose 207 mg/dL (70-105); Potassium 4.8 mmol/L (3.5-5.1); Sodium 134 mmol/L (136-145)
[2023-05-07] MEDS: HumaLOG 300 UNITS/3 ML VIAL SC PRN ×2 (06:32→12:48)
[2023-05-07 09:35] LABS: Hematocrit 28.4 % (38.8-50.0); Hemoglobin 9.5 g/dL (13.5-17.5); Mean Corpuscular HGB CONC 33.5 g/dL (32.0-36.0); Mean Corpuscular Hemoglobin 29.6 pg (27.0-33.0); Mean Corpuscular Volume 88.5 fl (81.2-95.1); Mean Platelet Volume 10.3 fl (7.4-10.4); Platelet Count 806 10x3/uL (150-450); RBC Distribution Width 14.1 % (11.5-14.5); Red Blood Cell (RBC) Count 3.21 10x6/uL (4.32-5.72); White Blood Cell (WBC) Count 17.9 10x3/uL (3.5-10.5)
[2023-05-07 09:36] LABS: MDiff Complete? YES
[2023-05-07] MEDS: Pantoprazole 40 MG VIAL IVP SCH (09:56)
[2023-05-07] MEDS ORDERED: Sodium Bicarbonate 2.5 MEQ/5 ML VIAL ONE (11:05)
[2023-05-07] MEDS ORDERED: Lidocaine 1% PF 5 ML VIAL ONE (11:05)
[2023-05-07 11:24] LABS: Band 8 % (5-11); Eosinophils 13 % (0-10); Lymphocytes 14 % (21-51); Monocytes 9 % (0-10); Neutrophil 52 % (42-75); Reactive Lymphocytes 4 % (0-10)
[2023-05-07 11:34] LABS: Polychromasia SLIGHT = 2-3 cells (100X) (0-2/hpf)
[2023-05-07 11:43] LABS: Platelet Adequacy Comment Appears Increased
[2023-05-07 11:47] LABS: Hypochromia SLIGHT = 6-15 cells (100X) (0-5/hpf)
[2023-05-07] MEDS: Multivitamins, Adult 10 ML, TRACE ELEMENT CONCENTRATE 1 ML in D15W-AA 5% with Lytes 2,0... IV SCH (14:02)
[2023-05-07] MEDS: FENTANYL 500 MCG/10 ML VIAL 1,000 MCG in Sodium Chloride 0.9% 30 ML IV PRN (20:52)
[2023-05-08] MEDS: HumaLOG 300 UNITS/3 ML VIAL SC PRN ×4 (01:16→16:50)
[2023-05-08] MEDS: Lactated Ringer's 1,000 ML IV SCH (01:16)
[2023-05-08] MEDS: Piperacillin/Tazobactam 3.375 GM in Sodium Chloride 0.9% 100 ML IVPB SCH ×3 (01:16→17:46)
[2023-05-08 04:24] LABS: Magnesium 1.9 mg/dL (1.6-2.6); Phosphorus 3.3 mg/dL (2.3-4.7); Potassium 4.4 mmol/L (3.5-5.1)
[2023-05-08] MEDS: Pantoprazole 40 MG VIAL IVP SCH (09:00)
[2023-05-08 09:28] LABS: Anion Gap 15 mmol/L (10-20); BUN (Urea Nitrogen) 18 mg/dL (8.4-25.7); Calc. Creatinine Clearance 132 mL/min (70-130); Calcium 8.3 mg/dL (7.8-10.44); Carbon Dioxide 20 mmol/L (22-29); Chloride 103 mmol/L (98-107); Estimated GFR 103; Glucose 153 mg/dL (70-105); Potassium 4.6 mmol/L (3.5-5.1); Sodium 133 mmol/L (136-145)
[2023-05-08] MEDS: Multivitamins, Adult 10 ML, TRACE ELEMENT CONCENTRATE 1 ML in D15W-AA 5% with Lytes 2,0... IV SCH (13:41)
[2023-05-08] MEDS: Fat Emulsion 250 ML IVPB SCH (13:41)
[2023-05-08] MEDS: Enoxaparin 40 MG (0.4 mL) SYRINGE SC SCH (21:48)
[2023-05-09 03:58] LABS: Hematocrit 25.5 % (38.8-50.0); Hemoglobin 8.6 g/dL (13.5-17.5); Mean Corpuscular HGB CONC 33.7 g/dL (32.0-36.0); Mean Corpuscular Hemoglobin 29.3 pg (27.0-33.0); Mean Corpuscular Volume 86.7 fl (81.2-95.1); Platelet Count 712 10x3/uL (150-450); Red Blood Cell (RBC) Count 2.94 10x6/uL (4.32-5.72); White Blood Cell (WBC) Count 15.9 10x3/uL (3.5-10.5)
[2023-05-09 04:09] LABS: ALT (SGPT) 25 U/L (8-55); AST (SGOT) 27 U/L (5-34); Albumin 2.6 g/dL (3.5-5.0); Alkaline Phosphatase 106 U/L (40-110); Anion Gap 13 mmol/L (10-20); BUN (Urea Nitrogen) 18 mg/dL (8.4-25.7); Bilirubin, Total 0.4 mg/dL (0.2-1.2); Calc. Creatinine Clearance 137 mL/min (70-130); Calcium 8.1 mg/dL (7.8-10.44); Carbon Dioxide 20 mmol/L (22-29); Chloride 104 mmol/L (98-107); Estimated GFR 104; Globulin 3.5 g/dL (2.4-3.5); Glucose 193 mg/dL (70-105); Magnesium 1.9 mg/dL (1.6-2.6); Phosphorus 3.1 mg/dL (2.3-4.7); Potassium 3.9 mmol/L (3.5-5.1); Protein, Total 6.1 g/dL (6.0-8.3); Sodium 133 mmol/L (136-145)
[2023-05-09] MEDS: Piperacillin/Tazobactam 3.375 GM in Sodium Chloride 0.9% 100 ML IVPB SCH ×3 (04:14→17:53)
[2023-05-09] MEDS: Lactated Ringer's 1,000 ML IV SCH (04:14)
[2023-05-09 04:28] LABS: Eosinophils 4 % (0-10); Lymphocytes 10 % (21-51); Metamyelocyte 2 % (0-0); Monocytes 7 % (0-10)
[2023-05-09 04:29] LABS: Platelet Adequacy Comment Appears Increased; RBC Morph Comment Within Normal Limits
[2023-05-09] MEDS: FENTANYL 500 MCG/10 ML VIAL 1,000 MCG in Sodium Chloride 0.9% 30 ML IV PRN (04:40)
[2023-05-09 04:43] LABS: MDiff Complete? YES
[2023-05-09] MEDS: Pantoprazole 40 MG VIAL IVP SCH (10:11)
[2023-05-09] MEDS: Multivitamins, Adult 10 ML, TRACE ELEMENT CONCENTRATE 1 ML in D15W-AA 5% with Lytes 2,0... IV SCH (14:50)
[2023-05-09] MEDS: Enoxaparin 40 MG (0.4 mL) SYRINGE SC SCH (21:13)
[2023-05-10] MEDS: HumaLOG 300 UNITS/3 ML VIAL SC PRN ×2 (01:06→05:58)
[2023-05-10] MEDS: Piperacillin/Tazobactam 3.375 GM in Sodium Chloride 0.9% 100 ML IVPB SCH ×3 (03:07→17:41)
[2023-05-10 04:17] LABS: Hematocrit 26.4 % (38.8-50.0); Hemoglobin 8.9 g/dL (13.5-17.5); Mean Corpuscular HGB CONC 33.7 g/dL (32.0-36.0); Mean Corpuscular Hemoglobin 29.3 pg (27.0-33.0); Mean Corpuscular Volume 86.8 fl (81.2-95.1); Platelet Count 771 10x3/uL (150-450); RBC Distribution Width 13.8 % (11.5-14.5); Red Blood Cell (RBC) Count 3.04 10x6/uL (4.32-5.72); White Blood Cell (WBC) Count 13.8 10x3/uL (3.5-10.5)
[2023-05-10 04:40] LABS: Phosphorus 3.2 mg/dL (2.3-4.7)
[2023-05-10 04:43] LABS: Anion Gap 13 mmol/L (10-20); BUN (Urea Nitrogen) 15 mg/dL (8.4-25.7); Calc. Creatinine Clearance 143 mL/min (70-130); Calcium 8.1 mg/dL (7.8-10.44); Carbon Dioxide 21 mmol/L (22-29); Chloride 105 mmol/L (98-107); Estimated GFR 105; Glucose 160 mg/dL (70-105); Potassium 3.9 mmol/L (3.5-5.1); Sodium 135 mmol/L (136-145)
[2023-05-10 04:56] LABS: Eosinophils 3 % (0-10); Lymphocytes 10 % (21-51); Metamyelocyte 1 % (0-0); Monocytes 7 % (0-10)
[2023-05-10 04:57] LABS: Giant Platelets SLIGHT HPF (0-5); Platelet Adequacy Comment Appears Increased; RBC Morph Comment Within Normal Limits
[2023-05-10 04:58] LABS: MDiff Complete? YES
[2023-05-10] MEDS: Lactated Ringer's 1,000 ML IV SCH (07:05)
[2023-05-10] MEDS: Pantoprazole 40 MG VIAL IVP SCH (09:06)
[2023-05-10] MEDS: Multivitamins, Adult 10 ML, TRACE ELEMENT CONCENTRATE 1 ML in D15W-AA 5% with Lytes 2,0... IV SCH (14:36)
[2023-05-10] MEDS: Enoxaparin 40 MG (0.4 mL) SYRINGE SC SCH (21:15)
[2023-05-11] MEDS: Lactated Ringer's 1,000 ML IV SCH (01:51)
[2023-05-11] MEDS: Piperacillin/Tazobactam 3.375 GM in Sodium Chloride 0.9% 100 ML IVPB SCH (02:05)
[2023-05-11 05:08] LABS: Anion Gap 11 mmol/L (10-20); BUN (Urea Nitrogen) 18 mg/dL (8.4-25.7); Calc. Creatinine Clearance 115 mL/min (70-130); Calcium 8.1 mg/dL (7.8-10.44); Carbon Dioxide 23 mmol/L (22-29); Chloride 105 mmol/L (98-107); Estimated GFR 102; Glucose 180 mg/dL (70-105); Potassium 4.1 mmol/L (3.5-5.1); Sodium 135 mmol/L (136-145)
[2023-05-11 05:16] LABS: Phosphorus 3.4 mg/dL (2.3-4.7)
[2023-05-11] MEDS: Pantoprazole 40 MG VIAL IVP SCH (09:16)
[2023-05-11] MEDS: Hydrocodone-Acetamin 15 ML UDCUP PO PRN ×2 (12:16→20:56)
[2023-05-11] MEDS: Fat Emulsion 250 ML IVPB SCH (14:33)
[2023-05-11] MEDS: Multivitamins, Adult 10 ML, TRACE ELEMENT CONCENTRATE 1 ML in D15W-AA 5% with Lytes 2,0... IV SCH (14:33)
[2023-05-11] MEDS: Acetaminophen 325 MG TAB PO PRN (20:56)
[2023-05-11] MEDS: Enoxaparin 40 MG (0.4 mL) SYRINGE SC SCH (20:56)
[2023-05-12] MEDS: HumaLOG 300 UNITS/3 ML VIAL SC PRN ×2 (00:52→06:27)
[2023-05-12] MEDS: Lactated Ringer's 1,000 ML IV SCH (00:53)
[2023-05-12 03:56] LABS: Phosphorus 3.9 mg/dL (2.3-4.7)
[2023-05-12 03:58] LABS: Anion Gap 13 mmol/L (10-20); BUN (Urea Nitrogen) 18 mg/dL (8.4-25.7); Calc. Creatinine Clearance 126 mL/min (70-130); Calcium 8.3 mg/dL (7.8-10.44); Carbon Dioxide 21 mmol/L (22-29); Chloride 106 mmol/L (98-107); Estimated GFR 105; Glucose 160 mg/dL (70-105); Magnesium 2.1 mg/dL (1.6-2.6); Potassium 3.8 mmol/L (3.5-5.1); Sodium 136 mmol/L (136-145)
[2023-05-12] MEDS: Hydrocodone-Acetamin 15 ML UDCUP PO PRN ×2 (06:28→10:39)
[2023-05-12 08:37] LABS: Hematocrit 28.6 % (38.8-50.0); Hemoglobin 9.6 g/dL (13.5-17.5); Mean Corpuscular HGB CONC 33.6 g/dL (32.0-36.0); Mean Corpuscular Hemoglobin 28.8 pg (27.0-33.0); Mean Corpuscular Volume 85.9 fl (81.2-95.1); Mean Platelet Volume 9.9 fl (7.4-10.4); Platelet Count 823 10x3/uL (150-450); RBC Distribution Width 13.6 % (11.5-14.5); Red Blood Cell (RBC) Count 3.33 10x6/uL (4.32-5.72); White Blood Cell (WBC) Count 11.2 10x3/uL (3.5-10.5)
[2023-05-12 08:50] LABS: MDiff Complete? YES
[2023-05-12 09:01] LABS: Anion Gap 12 mmol/L (10-20); BUN (Urea Nitrogen) 17 mg/dL (8.4-25.7); Calc. Creatinine Clearance 127 mL/min (70-130); Calcium 8.3 mg/dL (7.8-10.44); Carbon Dioxide 21 mmol/L (22-29); Chloride 106 mmol/L (98-107); Estimated GFR 105; Glucose 166 mg/dL (70-105); Sodium 135 mmol/L (136-145)
[2023-05-12 09:34] LABS: Band 9 % (5-11); Eosinophils 5 % (0-10); Lymphocytes 13 % (21-51); Metamyelocyte 1 % (0-0); Monocytes 9 % (0-10); Neutrophil 59 % (42-75); Reactive Lymphocytes 4 % (0-10)
[2023-05-12 09:38] LABS: Hypochromia SLIGHT = 6-15 cells (100X) (0-5/hpf); Microcytosis SLIGHT = 6-15 cells (100X) (0-5/hpf); Polychromasia SLIGHT = 2-3 cells (100X) (0-2/hpf)
[2023-05-12 09:39] LABS: Giant Platelets SLIGHT HPF (0-5); Platelet Adequacy Comment Appears Increased
[2023-05-12] MEDS: Polyethylene Glycol 3350 17 GM Packet PO SCH ×2 (09:44→20:59)
[2023-05-12] MEDS: Pantoprazole 40 MG VIAL IVP SCH (09:45)
[2023-05-12] MEDS: Morphine 2 MG/ML VIAL SLOW IVP PRN ×2 (14:16→19:27)
[2023-05-12] MEDS: Multivitamins, Adult 10 ML, TRACE ELEMENT CONCENTRATE 1 ML in D15W-AA 5% with Lytes 2,0... IV SCH (14:41)
[2023-05-12] MEDS ORDERED: Morphine 4 MG/ML VIAL ONE (14:47)
[2023-05-12] MEDS ORDERED: Morphine 2 MG/ML VIAL SLOW IVP SCH (15:00)
[2023-05-12] MEDS: Enoxaparin 40 MG (0.4 mL) SYRINGE SC SCH (20:58)
[2023-05-13] MEDS: Lactated Ringer's 1,000 ML IV SCH (00:35)
[2023-05-13] MEDS: Morphine 2 MG/ML VIAL SLOW IVP PRN ×4 (05:25→23:33)
[2023-05-13] MEDS: HumaLOG 300 UNITS/3 ML VIAL SC PRN (05:29)
[2023-05-13 07:34] LABS: Hematocrit 27.8 % (38.8-50.0); Hemoglobin 9.1 g/dL (13.5-17.5); Mean Corpuscular HGB CONC 32.7 g/dL (32.0-36.0); Mean Corpuscular Hemoglobin 28.3 pg (27.0-33.0); Mean Corpuscular Volume 86.3 fl (81.2-95.1); Mean Platelet Volume 9.3 fl (7.4-10.4); Platelet Count 798 10x3/uL (150-450); RBC Distribution Width 13.6 % (11.5-14.5); Red Blood Cell (RBC) Count 3.22 10x6/uL (4.32-5.72)
[2023-05-13 07:44] LABS: Calcium 8.1 mg/dL (7.8-10.44); Magnesium 1.9 mg/dL (1.6-2.6)
[2023-05-13 07:54] LABS: Band 6 % (5-11); Eosinophils 8 % (0-10); Lymphocytes 19 % (21-51); Monocytes 12 % (0-10); Neutrophil 54 % (42-75); Reactive Lymphocytes 1 % (0-10)
[2023-05-13 07:55] LABS: Hypochromia SLIGHT = 6-15 cells (100X) (0-5/hpf); Platelet Adequacy Comment Appears Increased
[2023-05-13 08:05] LABS: Anion Gap 11 mmol/L (10-20); BUN (Urea Nitrogen) 15 mg/dL (8.4-25.7); Calc. Creatinine Clearance 120 mL/min (70-130); Calcium 8.2 mg/dL (7.8-10.44); Carbon Dioxide 23 mmol/L (22-29); Chloride 106 mmol/L (98-107); Estimated GFR 104; Glucose 162 mg/dL (70-105); Potassium 3.9 mmol/L (3.5-5.1); Sodium 136 mmol/L (136-145)
[2023-05-13 08:29] LABS: Phosphorus 3.4 mg/dL (2.3-4.7)
[2023-05-13] MEDS: Polyethylene Glycol 3350 17 GM Packet PO SCH ×2 (10:12→23:33)
[2023-05-13] MEDS: Pantoprazole 40 MG VIAL IVP SCH (10:14)
[2023-05-13] MEDS: Multivitamins, Adult 10 ML, TRACE ELEMENT CONCENTRATE 1 ML in D15W-AA 5% with Lytes 2,0... IV SCH (13:44)
[2023-05-13] MEDS: Enoxaparin 40 MG (0.4 mL) SYRINGE SC SCH (23:33)
[2023-05-14 04:49] LABS: Anion Gap 12 mmol/L (10-20); BUN (Urea Nitrogen) 17 mg/dL (8.4-25.7); Calc. Creatinine Clearance 123 mL/min (70-130); Calcium 8.4 mg/dL (7.8-10.44); Carbon Dioxide 21 mmol/L (22-29); Chloride 106 mmol/L (98-107); Estimated GFR 105; Glucose 149 mg/dL (70-105); Magnesium 1.9 mg/dL (1.6-2.6); Phosphorus 3.9 mg/dL (2.3-4.7); Potassium 4.1 mmol/L (3.5-5.1); Sodium 135 mmol/L (136-145)
[2023-05-14] MEDS: Morphine 2 MG/ML VIAL SLOW IVP PRN (06:33)
[2023-05-14] MEDS: Pantoprazole 40 MG VIAL IVP SCH (09:27)
[2023-05-14] MEDS: Hydrocodone-Acetamin 15 ML UDCUP PO PRN (09:27)
[2023-05-14] MEDS: Polyethylene Glycol 3350 17 GM Packet PO SCH ×2 (09:34→21:34)
[2023-05-14] MEDS ORDERED: D15W AA IV SCH (14:00)
[2023-05-14] MEDS ORDERED: TRACE ELEMENT IV SCH (14:00)
[2023-05-14] MEDS ORDERED: [UNRECOGNIZED DRUG - OTHER] IV SCH (14:00)
[2023-05-14] MEDS ORDERED: MULTIVITAMINS IV SCH (14:00)
[2023-05-14] MEDS: Acetaminophen 325 MG TAB PO PRN (20:20)
[2023-05-14] MEDS: Enoxaparin 40 MG (0.4 mL) SYRINGE SC SCH (21:33)
[2023-05-15] MEDS: Polyethylene Glycol 3350 17 GM Packet PO SCH (08:35)
[2023-05-15 09:02] VITALS: BMI 29.7
[2023-05-15] MEDS: Morphine 2 MG/ML VIAL SLOW IVP PRN (10:59)
[2023-05-15 16:20] VITALS: BP 105/70; TEMP 99.2
== END 2023-05-15 17:51 | disposition home or self-care (01) | DRG 329 ==
LOC: CSHERS 12:09 → CSHSDC/OP 15:45 → CSHTELE 19:58 → CSHIMCU 04-30 23:40 → CSHTELE 05-05 18:38
PROVIDERS: ADMIT Surgery; ATTEND Surgery
PROC: 0W9G4ZZ Drainage of Peritoneal Cavity, Percutaneous Endoscopic Approach (ICD-10-PCS; 2023-04-22)
PROC: 0D1E0Z4 Bypass Large Intestine to Cutaneous, Open Approach (ICD-10-PCS; 2023-04-30)
PROC: 0DBN0ZZ Excision of Sigmoid Colon, Open Approach (ICD-10-PCS; 2023-04-30)
PROC: 0W9J0ZZ Drainage of Pelvic Cavity, Open Approach (ICD-10-PCS; 2023-04-30)
PROC: 0DQV0ZZ Repair Mesentery, Open Approach (ICD-10-PCS; 2023-04-30)
PROC: 3E0436Z Introduction of Nutritional Substance into Central Vein, Percutaneous Approach (ICD-10-PCS; 2023-04-30)
PROC: 30233N1 Transfusion of Nonautologous Red Blood Cells into Peripheral Vein, Percutaneous Approach (ICD-10-PCS; 2023-04-30)
PROC: 3E033XZ Introduction of Vasopressor into Peripheral Vein, Percutaneous Approach (ICD-10-PCS; 2023-04-30)
PROC: 30233J1 Transfusion of Nonautologous Serum Albumin into Peripheral Vein, Percutaneous Approach (ICD-10-PCS; 2023-04-30)
PROC: 02HV33Z Insertion of Infusion Device into Superior Vena Cava, Percutaneous Approach (ICD-10-PCS; principal; 2023-05-07)
PROC: B548ZZA Ultrasonography of Superior Vena Cava, Guidance (ICD-10-PCS; 2023-05-07)
PROC: B5181ZA Fluoroscopy of Superior Vena Cava using Low Osmolar Contrast, Guidance (ICD-10-PCS; 2023-05-07)
DX: K57.20 Diverticulitis of large intestine with perforation and abscess without bleeding (principal); A41.9 Sepsis, unspecified organism; K65.1 Peritoneal abscess; K65.9 Peritonitis, unspecified; K63.2 Fistula of intestine; E46 Unspecified protein-calorie malnutrition; R18.8 Other ascites; K56.7 Ileus, unspecified; E78.00 Pure hypercholesterolemia, unspecified; I10 Essential (primary) hypertension; K66.8 Other specified disorders of peritoneum; K66.0 Peritoneal adhesions (postprocedural) (postinfection); I25.10 Atherosclerotic heart disease of native coronary artery without angina pectoris; I25.2 Old myocardial infarction; Z98.890 Other specified postprocedural states; Z68.29 Body mass index [BMI] 29.0-29.9, adult
CPT/HCPCS: 36415; 36416; 36430; 36569; 71045; 74177; 80048; 80053; 81001; 82310; 83605; 83690; 83735; 84100; 84132; 84134; 85025; 86850; 86900; 86901; 87040; 88307; 93005; 96365; 96374; 96375; 97139; A4649; C1713; C1751; C1776; C9113; J0171; J1100; J1650; J1815; J1885; J2270; J2272; J2405; J2543; J2704; J3010; J3370; J3480; J3490; J7050; J7120; P9016; P9045; P9047; Q9967; S0020; S0028

== ENCOUNTER 2023-05-26 14:20 | Outpatient (CLI) | payer BC | END 2023-05-26 14:21 | disposition home or self-care (01) | LOC: CSHWCC 14:20 | PROVIDERS: ATTEND Preventive Medicine Undersea and Hyperbaric Medicine | DX: T81.42XD Infection following a procedure, deep incisional surgical site, subsequent encounter (principal) | CPT/HCPCS: 97605; 99213; G0463 ==

== ENCOUNTER 2023-05-29 09:43 | Outpatient (CLI) | payer BC | END 2023-05-29 09:44 | disposition home or self-care (01) | LOC: CSHWCC 09:43 | PROVIDERS: ATTEND Preventive Medicine Undersea and Hyperbaric Medicine | DX: T81.42XD Infection following a procedure, deep incisional surgical site, subsequent encounter (principal) | CPT/HCPCS: 97605 ==

== ENCOUNTER 2023-06-02 15:20 | Outpatient (CLI) | payer BC | END 2023-06-02 15:21 | disposition home or self-care (01) | LOC: CSHWCC 15:20 | PROVIDERS: ATTEND Preventive Medicine Undersea and Hyperbaric Medicine | DX: T81.42XD Infection following a procedure, deep incisional surgical site, subsequent encounter (principal) | CPT/HCPCS: 97605 ==

== ENCOUNTER 2023-06-04 15:39 | Inpatient (IN) | payer BC ==
[2023-06-04 16:43] LABS: #Basophils 0.1 10x3/uL (0.0-0.2); #Eosinphils 0.3 10x3/uL (0.0-0.5); #Monocytes 1.3 10x3/uL (0.0-1.1); #Neutrophils 8.3 10x3/uL (1.5-8.4); %Basophils 0.3 % (0.0-2.0); %Eosinophils 2.3 % (0.0-6.0); %Lymphocytes 33.1 % (18.0-47.0); %Monocytes 8.6 % (0.0-10.0); %Neutrophils 55.4 % (40.0-75.0); Hematocrit 35.9 % (38.8-50.0); Hemoglobin 11.5 g/dL (13.5-17.5); Mean Corpuscular Volume 84.3 fl (81.2-95.1); Mean Platelet Volume 9.7 fl (7.4-10.4); Platelet Count 465 10x3/uL (150-450); Red Blood Cell (RBC) Count 4.26 10x6/uL (4.32-5.72)
[2023-06-04 16:50] LABS: ALT (SGPT) 14 U/L (8-55); AST (SGOT) 17 U/L (5-34); Albumin 3.5 g/dL (3.5-5.0); Alkaline Phosphatase 101 U/L (40-110); Anion Gap 13 mmol/L (10-20); BUN (Urea Nitrogen) 17 mg/dL (8.4-25.7); Bilirubin, Total 0.4 mg/dL (0.2-1.2); Calc. Creatinine Clearance 0 mL/min (70-130); Calcium 8.9 mg/dL (7.8-10.44); Carbon Dioxide 23 mmol/L (22-29); Chloride 108 mmol/L (98-107); Estimated GFR 94; Globulin 3.9 g/dL (2.4-3.5); Glucose 109 mg/dL (70-105); Potassium 3.6 mmol/L (3.5-5.1); Protein, Total 7.4 g/dL (6.0-8.3); Sodium 140 mmol/L (136-145)
[2023-06-04] MEDS ORDERED: Piperacillin/Tazobactam 3.375 GM VIAL ONE (17:08)
[2023-06-04] MEDS ORDERED: Ondansetron PF 4 MG/2 ML Vial ONE (17:18)
[2023-06-04] MEDS ORDERED: Vancomycin 1.5 GRAM/300 ML BAG 1.5 GM in Premix 1 BAG IVPB SCH (18:00)
[2023-06-04 19:46] VITALS: BMI 27.6
[2023-06-04] MEDS ORDERED: Mag-Al 1200 mg/1200 mg/30 ML UDCUP PO PRN (20:18)
[2023-06-04] MEDS ORDERED: Promethazine HCl 25 MG/ML VIAL IM PRN (20:18)
[2023-06-04] MEDS ORDERED: Acetaminophen 325 MG TAB PO PRN ×2 (20:18→20:30)
[2023-06-04] MEDS ORDERED: hydrALAZINE 20 MG/ML VIAL SLOW IVP PRN (20:18)
[2023-06-04] MEDS ORDERED: Ipratropium/Albuterol 3 ML NEB NEB PRN (20:18)
[2023-06-04] MEDS ORDERED: HYDROcodone/Acetaminophen 10/325 mg Tablet PO PRN (20:18)
[2023-06-04] MEDS ORDERED: Morphine 2 MG/ML VIAL SLOW IVP PRN (20:18)
[2023-06-04] MEDS ORDERED: Calcium Carbonate 500 MG ChewTAB PO PRN (20:18)
[2023-06-04] MEDS ORDERED: Ondansetron PF 4 MG/2 ML Vial IVP PRN ×2 (20:18→20:30)
[2023-06-04] MEDS ORDERED: Ondansetron ODT 4 MG TAB SL PRN (20:30)
[2023-06-04] MEDS ORDERED: Atorvastatin Calcium 40 MG TAB PO SCH (21:00)
[2023-06-04] MEDS ORDERED: Enoxaparin 40 MG (0.4 mL) SYRINGE SC SCH (21:00)
[2023-06-04] MEDS ORDERED: Ezetimibe 10 MG TAB PO SCH (21:00)
[2023-06-04] MEDS: Famotidine 20 MG TAB PO SCH (21:43)
[2023-06-04] MEDS ORDERED: Piperacillin/Tazobactam 3.375 GM in Sodium Chloride 0.9% 100 ML IVPB SCH (22:00)
[2023-06-05 03:33] LABS: #Basophils 0.1 10x3/uL (0.0-0.2); #Eosinphils 0.7 10x3/uL (0.0-0.5); #Monocytes 0.9 10x3/uL (0.0-1.1); #Neutrophils 7.3 10x3/uL (1.5-8.4); %Basophils 0.5 % (0.0-2.0); %Eosinophils 5.6 % (0.0-6.0); %Lymphocytes 25.3 % (18.0-47.0); %Monocytes 7.3 % (0.0-10.0); Hematocrit 35.1 % (38.8-50.0); Hemoglobin 11.1 g/dL (13.5-17.5); Mean Corpuscular HGB CONC 31.6 g/dL (32.0-36.0); Mean Corpuscular Hemoglobin 26.9 pg (27.0-33.0); Mean Corpuscular Volume 85.2 fl (81.2-95.1); Mean Platelet Volume 10.2 fl (7.4-10.4); Platelet Count 456 10x3/uL (150-450); RBC Distribution Width 14.9 % (11.5-14.5); Red Blood Cell (RBC) Count 4.12 10x6/uL (4.32-5.72)
[2023-06-05 08:50] VITALS: TEMP 98.5
[2023-06-05] MEDS ORDERED: Ezetimibe 10 MG TAB PO SCH (09:00)
[2023-06-05] MEDS ORDERED: Fenofibrate Nanocrystallized 145 MG TAB PO SCH (09:00)
[2023-06-05] MEDS ORDERED: Aspirin 81 mg Enteric Coated Tablet PO SCH (09:00)
[2023-06-05] MEDS: Famotidine 20 MG TAB PO SCH (09:43)
[2023-06-05 12:33] VITALS: BP 100/65
== END 2023-06-05 13:47 | disposition home or self-care (01) | DRG 863 ==
LOC: CSHERS 15:39 → CSHTELE 18:44
PROVIDERS: ADMIT Surgery; ATTEND Surgery
DX: T81.41XA Infection following a procedure, superficial incisional surgical site, initial encounter (principal); K57.92 Diverticulitis of intestine, part unspecified, without perforation or abscess without bleeding; L02.211 Cutaneous abscess of abdominal wall; T81.89XA Other complications of procedures, not elsewhere classified, initial encounter; I10 Essential (primary) hypertension; E78.5 Hyperlipidemia, unspecified; I25.10 Atherosclerotic heart disease of native coronary artery without angina pectoris; Z98.890 Other specified postprocedural states; Z90.49 Acquired absence of other specified parts of digestive tract; Z79.899 Other long term (current) drug therapy; Z83.3 Family history of diabetes mellitus; Y83.8 Other surgical procedures as the cause of abnormal reaction of the patient, or of later complication, without mention of misadventure at the time of the procedure
CPT/HCPCS: 36415; 74177; 80053; 85025; 87040; 87070; 87076; 87205; 96365; 96375; 97139; J1650; J2405; J2543; J3370; J3490; Q9967

== ENCOUNTER 2023-06-09 14:47 | Outpatient (CLI) | payer BC | END 2023-06-09 14:48 | disposition home or self-care (01) | LOC: CSHWCC 14:47 | PROVIDERS: ATTEND Physician Assistant | DX: T81.42XD Infection following a procedure, deep incisional surgical site, subsequent encounter (principal) | CPT/HCPCS: 97605 ==

== ENCOUNTER 2023-06-12 09:17 | Outpatient (CLI) | payer BC | END 2023-06-12 09:18 | disposition home or self-care (01) | LOC: CSHWCC 09:17 | PROVIDERS: ATTEND Physician Assistant | DX: T81.42XD Infection following a procedure, deep incisional surgical site, subsequent encounter (principal) | CPT/HCPCS: 97605 ==

== ENCOUNTER 2023-06-16 13:06 | Outpatient (CLI) | payer BC | END 2023-06-16 13:07 | disposition home or self-care (01) | LOC: CSHWCC 13:06 | PROVIDERS: ATTEND Physician Assistant | DX: T81.31XD Disruption of external operation (surgical) wound, not elsewhere classified, subsequent encounter (principal); T81.42XD Infection following a procedure, deep incisional surgical site, subsequent encounter | CPT/HCPCS: 97605 ==

== ENCOUNTER 2023-06-19 12:43 | Outpatient (CLI) | payer BC | END 2023-06-19 12:44 | disposition home or self-care (01) | LOC: CSHWCC 12:43 | PROVIDERS: ATTEND Nurse Practitioner Family | DX: L89.304 Pressure ulcer of unspecified buttock, stage 4 (principal) | CPT/HCPCS: 97605 ==

== ENCOUNTER 2023-06-23 08:47 | Outpatient (CLI) | payer BC | END 2023-06-23 08:48 | disposition home or self-care (01) | LOC: CSHWCC 08:47 | PROVIDERS: ATTEND Nurse Practitioner Family | DX: T81.42XD Infection following a procedure, deep incisional surgical site, subsequent encounter (principal); T81.31XD Disruption of external operation (surgical) wound, not elsewhere classified, subsequent encounter; L03.319 Cellulitis of trunk, unspecified | CPT/HCPCS: 11042 ==

== ENCOUNTER 2023-06-24 16:44 | Outpatient (CLI) | payer BC | END 2023-06-24 16:45 | disposition home or self-care (01) | LOC: CSHWCC 16:44 | PROVIDERS: ATTEND Nurse Practitioner Family | DX: T81.42XD Infection following a procedure, deep incisional surgical site, subsequent encounter (principal); T81.31XD Disruption of external operation (surgical) wound, not elsewhere classified, subsequent encounter; L03.319 Cellulitis of trunk, unspecified | CPT/HCPCS: 97605 ==

== ENCOUNTER 2023-06-29 10:47 | Outpatient (CLI) | payer BC | END 2023-06-29 10:48 | disposition home or self-care (01) | LOC: CSHWCC 10:47 | PROVIDERS: ATTEND Nurse Practitioner Family | DX: T81.42XD Infection following a procedure, deep incisional surgical site, subsequent encounter (principal); T81.31XD Disruption of external operation (surgical) wound, not elsewhere classified, subsequent encounter | CPT/HCPCS: 11042 ==

== ENCOUNTER 2023-07-06 11:07 | Outpatient (CLI) | payer BC | END 2023-07-06 11:08 | disposition home or self-care (01) | LOC: CSHWCC 11:07 | PROVIDERS: ATTEND Nurse Practitioner Family | DX: T81.42XD Infection following a procedure, deep incisional surgical site, subsequent encounter (principal); T81.31XD Disruption of external operation (surgical) wound, not elsewhere classified, subsequent encounter | CPT/HCPCS: 11042 ==

== ENCOUNTER 2023-07-13 13:29 | Outpatient (CLI) | payer BC | END 2023-07-13 13:30 | disposition home or self-care (01) | LOC: CSHWCC 13:29 | PROVIDERS: ATTEND Nurse Practitioner Family | DX: T81.31XD Disruption of external operation (surgical) wound, not elsewhere classified, subsequent encounter (principal); T81.42XD Infection following a procedure, deep incisional surgical site, subsequent encounter | CPT/HCPCS: 97597 ==

== ENCOUNTER 2023-08-10 10:00 | Inpatient (IN) | payer BC ==
[2023-08-10 10:21] VITALS: BMI 28.3
[2023-08-13] MEDS ORDERED: Bupivacaine PF 0.5% 30 ML VIAL ONE (11:28)
[2023-08-13] MEDS ORDERED: EPINEPHrine 1 MG/ML VIAL ONE (11:28)
[2023-08-13] MEDS ORDERED: Rocuronium Bromide 10 MG/ML (10ML VIAL) ONE (11:35)
[2023-08-13] MEDS ORDERED: Lidocaine 1% PF 5 ML VIAL ONE (11:35)
[2023-08-13] MEDS ORDERED: fentaNYL 50 mcg/mL 1 mL Vial ONE ×3 (11:35→16:30)
[2023-08-13] MEDS ORDERED: Dexamethasone 4 mg/ml Vial ONE (11:35)
[2023-08-13] MEDS ORDERED: PROPOFOL 20 ML ONE (11:35)
[2023-08-13] MEDS ORDERED: Esmolol 100 MG/10 ML VIAL ONE (11:35)
[2023-08-13] MEDS ORDERED: Ketorolac Tromethamine 30 MG (1 mL) VIAL ONE (11:35)
[2023-08-13] MEDS ORDERED: Midazolam HCl 2 mg/2 ml Vial ONE (11:35)
[2023-08-13] MEDS ORDERED: Ondansetron PF 4 MG/2 ML Vial ONE (11:35)
[2023-08-13] MEDS ORDERED: ceFOXitin 1 GM VIAL ONE ×2 (11:36→15:47)
[2023-08-13] MEDS ORDERED: HYDROmorphone 0.5 MG/0.5 ML SYRINGE ONE (13:18)
[2023-08-13] MEDS ORDERED: SUGAMMADEX SODIUM 200 MG/2 ML VIAL ONE (13:18)
[2023-08-13] MEDS ORDERED: Indocyanine Green 25 MG/10 ML VIAL ONE (15:12)
[2023-08-13] MEDS ORDERED: PHENYLEPHRINE-NS 100 MCG/ML 10 ML SYRINGE ONE (15:38)
[2023-08-13] MEDS ORDERED: CEFAZOLIN 1 GM VIAL ONE (15:43)
[2023-08-13] MEDS ORDERED: diphenhydrAMINE 50 MG/ML VIAL IVP PRN (16:23)
[2023-08-13] MEDS ORDERED: Morphine 4 MG/ML VIAL SLOW IVP PRN (16:23)
[2023-08-13] MEDS ORDERED: Ondansetron PF 4 MG/2 ML Vial IVP PRN (16:23)
[2023-08-13] MEDS ORDERED: Morphine 2 MG/ML VIAL SLOW IVP PRN (16:23)
[2023-08-13] MEDS ORDERED: Ipratropium/Albuterol 3 ML NEB NEB PRN (16:25)
[2023-08-13] MEDS: D5 1/2 NS w/20 mEq KCL 1,000 ML IV SCH (18:23)
[2023-08-13] MEDS: Ketorolac Tromethamine 30 MG (1 mL) VIAL IVP SCH (18:25)
[2023-08-13] MEDS: Famotidine 20 MG TAB PO SCH (21:36)
[2023-08-13] MEDS: Enoxaparin 30 MG (0.3 mL) SYRINGE SC SCH (21:37)
[2023-08-13] MEDS: cefOXitin 2 GM in Sodium Chloride 0.9% 100 ML IVPB SCH (21:44)
[2023-08-14 04:03] LABS: Anion Gap 13 mmol/L (10-20); BUN (Urea Nitrogen) 16 mg/dL (8.4-25.7); Calc. Creatinine Clearance 77 mL/min (70-130); Calcium 8.6 mg/dL (7.8-10.44); Carbon Dioxide 19 mmol/L (22-29); Chloride 108 mmol/L (98-107); Estimated GFR 75; Glucose 174 mg/dL (70-105); Potassium 3.9 mmol/L (3.5-5.1); Sodium 136 mmol/L (136-145)
[2023-08-14 04:41] LABS: #Basophils 0.06 10x3/uL (0.0-0.2); #Eosinphils 0.02 10x3/uL (0.0-0.5); #Monocytes 0.95 10x3/uL (0.0-1.1); #Neutrophils 13.36 10x3/uL (1.5-8.4); %Basophils 0.4 % (0.0-2.0); %Eosinophils 0.1 % (0.0-6.0); %Monocytes 5.9 % (0.0-10.0); %Neutrophils 83.2 % (40.0-75.0); Hematocrit 44.7 % (38.8-50.0); Hemoglobin 14.8 g/dL (13.5-17.5); Mean Corpuscular HGB CONC 33.1 g/dL (32.0-36.0); Mean Corpuscular Hemoglobin 27.9 pg (27.0-33.0); Mean Corpuscular Volume 84.3 fl (81.2-95.1); Mean Platelet Volume 10.3 fl (7.4-10.4); Platelet Count 318 10x3/uL (150-450); RBC Distribution Width 16.2 % (11.5-14.5); White Blood Cell (WBC) Count 16.1 10x3/uL (3.5-10.5)
[2023-08-14] MEDS: Ezetimibe 10 MG TAB PO SCH (09:39)
[2023-08-14] MEDS: HYDROcodone/Acetaminophen 5/325 mg Tablet PO PRN ×2 (15:39→21:17)
[2023-08-15 12:30] VITALS: BP 102/65; TEMP 98.4
== END 2023-08-15 12:31 | disposition home or self-care (01) | DRG 331 ==
LOC: CSHTELE 08-13 08:34 → EDSTATUS 08-13 10:00 → CSHTELE 08-13 17:03
PROVIDERS: ADMIT Surgery; ATTEND Surgery
PROC: 0DBN4ZZ Excision of Sigmoid Colon, Percutaneous Endoscopic Approach (ICD-10-PCS; principal; 2023-08-13)
PROC: 8E0W4CZ Robotic Assisted Procedure of Trunk Region, Percutaneous Endoscopic Approach (ICD-10-PCS; 2023-08-13)
PROC: 3E033XZ Introduction of Vasopressor into Peripheral Vein, Percutaneous Approach (ICD-10-PCS; 2023-08-13)
DX: Z43.3 Encounter for attention to colostomy (principal); K57.30 Diverticulosis of large intestine without perforation or abscess without bleeding; I25.10 Atherosclerotic heart disease of native coronary artery without angina pectoris; I10 Essential (primary) hypertension; E78.00 Pure hypercholesterolemia, unspecified; E78.5 Hyperlipidemia, unspecified; Z98.890 Other specified postprocedural states; Z90.49 Acquired absence of other specified parts of digestive tract; Z79.899 Other long term (current) drug therapy; Z79.82 Long term (current) use of aspirin
CPT/HCPCS: 80048; 85025; J0171; J0665; J0690; J0694; J1100; J1170; J1650; J1885; J2250; J2405; J2704; J3010; J3480; J3490